=== PATIENT | female | born 1960 | race Caucasian/White ===

== ENCOUNTER 2019-07-07 14:23 | Emergency (ER) | payer OTHER, MEDICAID, SELFPAY ==
[2019-07-07 14:37] VITALS: BP 164/106; PULSE 85; RESP 16; TEMP 36.8; O2SAT 97; BMI 35.4
--- NOTE | 2019-07-07 16:02 | ED_ITS ---
HPI - Back Pain/Injury <JUAN William - Last Filed: 07/07/19 21:46> General Chief Complaint: Back Pain/Injury Stated Complaint: Back pain Time Seen by Provider: 07/07/19 15:52 Source: patient Mode of arrival: ambulatory Limitations: no limitations History of Present Illness HPI Narrative: 59-year-old female with a history of 8 lumbar surgeries including multiple fusions, presents emergency department today complaining of lower back pain for the past 3 days after twisting and falling. She states she starts to tripped and twisted, she heard a pop in her back and felt a sharp stabbing pain which she describes as a 10/10 pain that is worse with movement in slightly better with rest. He has been taking ibuprofen for the last 3 days but the pain is not resolved at all. Patient states the pain radiates down the left side of her leg, she tingling in her left leg. She also reports she is nauseated due to the pain. Patient denies fevers, chills, loss of bowel or bladder control, saddle paresthesias, abdominal pain, vomiting, diarrhea, shortness of breath, or chest pain. Related Data Previous Rx's Medication Instructions Recorded methocarbamol 500 mg PO TID #10 tab 07/07/19 oxycodone-acetaminophen 2 tab PO Q4-6H PRN #14 tab 07/07/19 Allergies Allergy/AdvReac Type Severity Reaction Status Date / Time From CODEINE SULFATE Allergy Unknown NAUSEA Uncoded 02/07/18 12:24 TAPE Allergy Unknown SEVERE Uncoded 02/07/18 12:24 RASH/ PAPER TAPE IS OK Review of Systems <JUAN William - Last Filed: 07/07/19 21:46> Review of Systems Narrative: REVIEW OF SYSTEMS: GENERAL: Denies fever or chills. HENT: No head trauma. EYES: No double vision or vision loss. CARDIOVASCULAR: No chest pain or syncope. RESPIRATORY: No shortness of breath or cough. GASTROINTESTINAL: No nausea, vomiting, diarrhea, or constipation. GENITOURINARY: No flank pain or dysuria. MUSCULOSKELETAL: Complains of back pain, see HPI. INTEGUMENTARY: No rash, lesions, or pruritus. NEURO: Patient complains of pain shooting down her left leg, see HPI. PSYCH: No behavior or mood changes. PFSH <JUAN William Last Filed: 07/07/19 21:46> Medical History (Updated 07/07/19 @ 21:34 by JUAN William) Fusion of lumbar spine (Acute) Social History Smoking Status: Never smoker Social History Smoking Status: Never smoker Exam <JUAN William - Last Filed: 07/07/19 21:46> Initial Vital Signs Initial Vital Signs: Vital Signs Temperature 98.2 F 07/07/19 14:37 Pulse Rate 85 07/07/19 14:37 Respiratory Rate 16 07/07/19 14:37 Blood Pressure 164/106 H 07/07/19 14:37 Pulse Oximetry 97 07/07/19 14:37 PHYSICAL EXAMINATION: GENERAL: Well groomed, alert. Patient exhibited a flat affect, her answers to questions were short but appropriate. Patient fairly uncooperative throughout the exam even after administration of pain medication. Vital signs noted. HENT: Normocephalic, atraumatic. EYES: Symmetrical, sclera white, no periorbital swelling. CARDIOVASCULAR: S1 and S2 sounds normal. Regular rate and rhythm, no murmurs, clicks, or bruits. No pedal edema. RESPIRATORY: Normal respiratory rate, trachea midline, airway patent. No stridor, nasal flaring or accessory muscle use. Lungs are clear in all cruz. MUSCULOSKELETAL: Tenderness all along lumbar spine and paraspinal muscles. Limited range of motion of spine due to pain. Positive straight leg test to right and left leg, pain was exhibited mostly on the left. Equal strength bilaterally to lower extremities. Patient arrived in a wheelchair but was able to ambulate upon discharge even though she stated the pain medication was not working. Equal tone and mass bilaterally. No spinal tenderness or deformities. EXTREMITIES: CMS intact. No pedal edema. SKIN: Warm, dry, soft, appropriate color for ethnicity. No lesions, rashes, or wounds. NEURO: Alert and Oriented X 3. Patient reports slight decrease in light touch sensation to the posterior aspect of left leg, however no change in light touch sensation to the lateral, medial, or anterior aspects of left leg. PSYCH: Flat affect, patient was occasionally uncooperative with staff. <Merari Biggs DO - Last Filed: 07/08/19 07:46> Initial Vital Signs Initial Vital Signs: Vital Signs Temperature 98.2 F 07/07/19 14:37 Pulse Rate 85 07/07/19 14:37 Respiratory Rate 16 07/07/19 14:37 Blood Pressure 164/106 H 07/07/19 14:37 Pulse Oximetry 97 07/07/19 14:37 Course <Benita WilsonJUAN - Last Filed: 07/07/19 21:46> Course Course Narrative: After administration of Zofran and Dilaudid, patient appeared in much less pain on examination. However, she states that the pain medication did nothing. Patient continued to exhibit of flat affect and was only occasionally cooperative on palm exam. Orders Ordered: Discontinued Medications Hydromorphone HCl (Dilaudid) 1 mg IM NOW ONE Stop: 07/07/19 16:01 Last Admin: 07/07/19 16:34 Dose: 1 mg Documented by: KENNY Ondansetron HCl (Zofran Odt) 4 mg SL NOW ONE Stop: 07/07/19 16:01 Last Admin: 07/07/19 16:34 Dose: 4 mg Documented by: KENNY Oxycodone/Acetaminophen (Percocet 5/325) 2 tab PO NOW ONE Stop: 07/07/19 17:26 Last Admin: 07/07/19 17:32 Dose: 2 tab Documented by: KENNY Oxycodone/Acetaminophen (Endocet 5/325 Prepack) 1 bottle MISC SEEINSTR ONE Stop: 07/07/19 17:44 Last Admin: 07/07/19 18:04 Dose: 1 bottle Documented by: KENNY Consultations Consultation #1: Patient staffed Dr. Biggs. Vital Signs Vital signs: Vital Signs - 8 hr 07/07/19 14:37 07/07/19 16:49 07/07/19 17:37 Temperature 98.2 F Pulse Rate 85 76 73 Respiratory Rate 16 18 18 Blood Pressure 164/106 H Blood Pressure [Right Arm] 161/117 H 137/84 Pulse Oximetry 97 98 96 07/07/19 18:12 Temperature 98.4 F Pulse Rate 70 Respiratory Rate 14 Blood Pressure 123/93 H Blood Pressure [Right Arm] Pulse Oximetry 98 <Merari Biggs DO - Last Filed: 07/08/19 07:46> Orders Ordered: Discontinued Medications Hydromorphone HCl (Dilaudid) 1 mg IM NOW ONE Stop: 07/07/19 16:01 Last Admin: 07/07/19 16:34 Dose: 1 mg Documented by: KENNY Ondansetron HCl (Zofran Odt) 4 mg SL NOW ONE Stop: 07/07/19 16:01 Last Admin: 07/07/19 16:34 Dose: 4 mg Documented by: KENNY Oxycodone/Acetaminophen (Percocet 5/325) 2 tab PO NOW ONE Stop: 07/07/19 17:26 Last Admin: 07/07/19 17:32 Dose: 2 tab Documented by: KENNY Oxycodone/Acetaminophen (Endocet 5/325 Prepack) 1 bottle MISC SEEINSTR ONE Stop: 07/07/19 17:44 Last Admin: 07/07/19 18:04 Dose: 1 bottle Documented by: KENNY Vital Signs Vital signs: Vital Signs - 8 hr 07/07/19 14:37 07/07/19 16:49 07/07/19 17:37 Temperature 98.2 F Pulse Rate 85 76 73 Respiratory Rate 16 18 18 Blood Pressure 164/106 H Blood Pressure [Right Arm] 161/117 H 137/84 Pulse Oximetry 97 98 96 07/07/19 18:12 Temperature 98.4 F Pulse Rate 70 Respiratory Rate 14 Blood Pressure 123/93 H Blood Pressure [Right Arm] Pulse Oximetry 98 MDM - Back Pain/Injury <JUAN William - Last Filed: 07/07/19 21:46> Medical Records Attestation: I reviewed the patient's medical records. Lab Data Attestation: I reviewed the patient's lab results. Imaging Data Lumbar XR: Radiologist's impression: [address] [address] XRay Report Signed Patient: Haydee Gautam#: [id number] : 1960Acct:[id number] Age/Sex: 59 / FDate of Service: 07/07/19 Loc: ED Accession Number: [id number] Procedure: XR lumbar spine 2-3V Ordering Provider: Benita Wilson PROCEDURE: XR LUMBAR SPINE 2-3V INDICATIONS: Multiple surgeries, new lumbar back pain post fall TECHNIQUE: 3 views of the lumbar spine were acquired. COMPARISON: [facility], CR, THORACO-LUMBAR SPINE 2 VIEWS, 10/10/2013, 14:50. [facility], CT, L-SPINE WITH CONTRAST, 10/09/2013, 13:09. [facility], CT, LUMBAR OR SACRAL SPINE WO CONT, 05/11/2013, 17:08. [facility], CR, L-SPINE 2-3 VIEWS, 10/01/2013, 15:13. FINDINGS: Bones: Postoperative changes are seen, with bilateral pedicle screws at the T11-L5 levels. The screws appear well placed. On the lateral image, there is lucency seen surrounding one of the L5 screws, likely the right, yet this is not well localized on the frontal image. There is a disc spacer seen at the L3-L4 level. There is a screw seen inserted from the left at L3 level, which again is not well seated. This screw is not significantly changed compared to 2013. Vertical fixation rods are seen. No additional findings of hardware failure or hardware loosening are seen. There has been removal of portions of the posterior elements. 5 nonrib-bearing, lumbar type vertebral bodies are seen. No acute appearing fractures are seen. No suspicious lytic or blastic lesions can be seen. Mild levoconvex scoliotic curvature is noted. Soft tissues: Overlying bowel gas pattern is normal. No suspicious soft tissue calcifications. IMPRESSION: Extensive postoperative changes, without an acute bony fracture or acute hardware abnormality identified. If there is point tenderness (or other clinical suspicion for a fracture not seen on these images) then a dedicated CT could be considered for further evaluation, as clinically appropriate. Dictated by: Marques Mei M.D. on 07/07/2019 at 15:59 Approved by: Marques Mei M.D. on 07/07/2019 at 16:08 MDM Narrative Medical decision making narrative: I suspect that patient's pain is caused from a muscle strain and/or spasm due to mechanism of injury, lack of fracture started on x-ray, tenderness to paraspinal muscles, and description of pain. This may be complicated with left leg sciatica as described by the shooting pain down her leg, this may also be the explanation for the decrease in sensation in the posterior aspect of her leg. A very little concern for cauda equina as patient denies saddle paresthesias, she is able to ambulate without distress, denies loss of bowel or bladder control, and exhibits good strength on both lower extremities. Very little concern for spinal abscess as patient has not recently had any spinal procedures, no muscle weakness, and she has no systemic symptoms such as fever. Strict return precautions given and follow-up instructions discussed. Extensive conversation was had with patient about the use and dangers of narcotics and muscle relaxers. Discharge Plan Departure Patient Disposition: Home Clinical Impression: Strain of lumbar region Qualifiers: Encounter type: initial encounter Qualified Code(s): S39.012A - Strain of muscle, fascia and tendon of lower back, initial encounter Discharge Date/Time: 07/07/19 18:14 Instructions: DI for Low Back Pain Activity Restrictions/Additional Instructions: Thank you for entrusting me with your care today. As discussed, your x-rays are negative for any fractures. I prescribed you a pain medication, do not drive with this medication as it can make you drowsy. Additionally, I prescribed you a medication that helps relax your muscles, this can also make you drowsy so do not drive with this medication. Please follow up with your primary care provider in the next week for re-evaluation. Return to the emergency department if he develops chest pain, shortness of breath, syncope, high fevers, confusion, loss of bowel or bladder control, saddle paresthesias, or severe abdominal pain. Prescriptions: New oxycodone-acetaminophen 5-325 mg tablet 2 tab PO Q4-6H PRN (Reason: pain) Qty: 14 RF: 0 methocarbamol 500 mg tablet 500 mg PO TID Qty: 10 RF: 0 Referrals: Kati Alvarez MD [Primary Care Provider] -
[2019-07-07] MEDS: HYDROMORPHONE 1 MG INJ IM (16:34)
[2019-07-07] MEDS: ONDANSETRON 4 MG ODT SL (16:34)
[2019-07-07 16:49] VITALS: BP 161/117; PULSE 76; RESP 18; O2SAT 98
[2019-07-07] MEDS: OXYCODONE/ACETAMINOPHEN 5/325 TABLET 2 TAB PO (17:32)
[2019-07-07 17:37] VITALS: BP 137/84; PULSE 73; RESP 18; O2SAT 96
[2019-07-07] MEDS: OXYCODONE/APAP 5/325 PREPACK 1 BOTTLE MISC (18:04)
[2019-07-07 18:12] VITALS: BP 123/93; PULSE 70; RESP 14; TEMP 36.9; O2SAT 98
== END 2019-07-07 18:14 | disposition home or self-care (01) ==
PROVIDERS: Emergency Provider Nurse Practitioner; PCP Internal Medicine
DX: S39.012A Strain of muscle, fascia and tendon of lower back, initial encounter (principal)
CPT/HCPCS: 72100; 96372; 99282; 99283; J1170